=== PATIENT | born 1985 | race Caucasian/White ===

== ENCOUNTER 2024-07-13 09:34 | Day surgery (SDC) | payer BC ==
[2024-07-13] MEDS ORDERED: ceFAZolin 2 GM VIAL ONE (09:46)
[2024-07-13] MEDS: LACTATED RINGERS 1,000 ML IV ONE ×2 (09:52→12:38)
--- NOTE | 2024-07-13 10:20 | ANESTHESIA ---
Pre-Anesthesia VS, & Labs - Diagnosis Gender dysphoria - Procedure Bilateral orchiectomy Vital Signs: Temp Pulse Resp BP Pulse Ox O2 Flow Rate 36.8 C 14 91 124/78 100 07/13/24 10:01 07/13/24 10:01 07/13/24 10:01 07/13/24 10:01 07/13/24 10:01 Height: 5 ft 9 in Weight (kg): 65.7 kg Body Mass Index: 21.4 BMI Classification: Normal - NPO >8 hours Last Fluid Intake: black coffee 07 - Is Patient ?: No Home Medications and Allergies Home Medications: Ambulatory Orders Buspirone HCl 10 mg PO BID 07/07/24 Cholecalciferol [Vitamin D3] 50 mcg PO DAILY 07/07/24 Cyclobenzaprine [Flexeril] 10 mg PO QPM 07/07/24 Escitalopram [Lexapro] 20 mg PO DAILY 07/07/24 Potassium Citrate [Potassium] 99 mg PO DAILY 07/07/24 Progesterone, Micronized [Prometrium] 200 mg PO DAILY 07/07/24 Spironolactone [Aldactone] 200 mg PO BID 07/07/24 Vitamin B Complex 1 each PO DAILY 07/07/24 estradioL [Estradiol] 6 mg PO DAILY 07/07/24 traZODone [Desyrel] 50 mg PO HS 07/07/24 Buspirone HCl 10 mg PO BID 07/07/24 Cholecalciferol [Vitamin D3] 50 mcg PO DAILY 07/07/24 Cyclobenzaprine [Flexeril] 10 mg PO QPM 07/07/24 Escitalopram [Lexapro] 20 mg PO DAILY 07/07/24 Potassium Citrate [Potassium] 99 mg PO DAILY 07/07/24 Progesterone, Micronized [Prometrium] 200 mg PO DAILY 07/07/24 Spironolactone [Aldactone] 200 mg PO BID 07/07/24 Vitamin B Complex 1 each PO DAILY 07/07/24 estradioL [Estradiol] 6 mg PO DAILY 07/07/24 traZODone [Desyrel] 50 mg PO HS 07/07/24 Allergies/Adverse Reactions: Allergies Allergy/AdvReac Type Severity Reaction Status Date / Time No Known Drug Allergies Allergy Verified 07/13/24 10:09 Anes History & Medical History - Anesthetic History Anesthesia Complications: reports: No previous complications - Medical History Cardiovascular: reports: None Pulmonary: reports: None Gastrointestinal: reports: None Urinary: reports: Chronic bladder infection, Kidney stones Neuro: reports: None Musculoskeletal: reports: Osteoarthritis Endocrine/Autoimmune: reports: None Skin: reports: None Smoking Status: Current every day smoker (3/4 to 1 pack per day) Psychosocial: reports: Depression History of Cancer?: No - Surgical History General: reports: Appendectomy Gynecologic: reports: Breast implants Exam General: Alert, Oriented x3, Cooperative, No acute distress Mouth Openin Fingerbreadth Neck Mobility: Normal Mallampati classification: I Thyromental Distance: 4-6 cm Mental/Cognitive Status: Alert/Oriented X3, Normal for patient Plan Anesthesia Type: General Consent for Procedure(s) Verified and Reviewed: Yes Code Status: Attempt Resuscitation ASA classification: 2-Mild systemic disease Is this case an emergency?: No
[2024-07-13] MEDS ORDERED: MORPHINE 2 MG/ML CARPUJECT IVP PRN (10:24)
[2024-07-13] MEDS ORDERED: fentaNYL 100 MCG/2 ML VIAL IVP PRN (10:24)
[2024-07-13] MEDS ORDERED: ATROPINE ABBOJECT 1 MG/10 ML SYRINGE IVP PRN (10:24)
[2024-07-13] MEDS ORDERED: ONDANSETRON 4 MG/2 ML VIAL IVP PRN ×2 (10:24→13:02)
[2024-07-13] MEDS ORDERED: NALOXONE 0.4 MG/ML VIAL IVP PRN (10:24)
[2024-07-13] MEDS ORDERED: HYDROmorphone 0.5 MG/0.5 ML SYRINGE IVP PRN (10:24)
[2024-07-13] MEDS ORDERED: LACTATED RINGERS 1,000 ML IV SCH (11:00)
[2024-07-13] MEDS ORDERED: PROPOFOL 200 MG/20 ML VIAL IVP ONE (11:06)
[2024-07-13] MEDS ORDERED: fentaNYL 100 MCG/2 ML VIAL ONE (11:06)
[2024-07-13] MEDS ORDERED: ONDANSETRON 4 MG/2 ML VIAL ONE (11:06)
[2024-07-13] MEDS ORDERED: DEXAMETHASONE 4 MG/ML VIAL ONE (11:06)
[2024-07-13] MEDS ORDERED: MIDAZOLAM 2 MG/2 ML VIAL ONE (11:07)
[2024-07-13] MEDS ORDERED: lidocaine 1% 20 ML MDV ONE (11:20)
[2024-07-13] MEDS ORDERED: BUPIVACAINE 0.5% PF 10 ML VIAL ONE (11:20)
[2024-07-13] MEDS: BUPIVACAINE 0.5% PF 30 ML VIAL SUBQ ONE ×2 (12:05)
[2024-07-13] MEDS: LIDOCAINE-MPF 1% 30 ML VIAL SUBQ ONE ×2 (12:05)
--- NOTE | 2024-07-13 13:08 | Discharge Plan ---
Discharge Plan Problem Reviewed?: Yes Disposition: Home, Self Care Condition: Good Prescriptions: Docusate Sodium 100Mg Capsule [Colace 100Mg Capsule] 100 mg PO DAILY #14 cap oxyCODONE [Roxicodone] 5 mg PO Q4H PRN #10 tablet PRN Reason: Pain Diet: Regular Activity Restrictions: Additional Comments (as instructed) Shower Restrictions: No (no bathing for one week) Driving Restrictions: No Additional Instructions or Follow Up instructions: You will be contacted for follow-up with Dr. Cohen in roughly 6 weeks time No Smoking: If you smoke, Please STOP! Call for help. Follow-up with: ARIN EASTMAN MD [Primary Care Provider] - Oleg Cohen MD [Provider Admit Priv/Credential] -
--- NOTE | 2024-07-13 13:12 | OPERATIVE REPORT ---
Operative Report - General Procedure Date: 07/13/24 Planned Procedure: Bilateral simple orchiectomy Pre-Op Diagnosis: Gender dysphoria Procedure Performed: Bilateral simple orchiectomy Post Op Diagnosis: Gender dysphoria - Procedure Note Primary Surgeon: Noel Anesthesia Provider: ROCCO Schwartz Anesthesia Technique: General LMA Pathology: Left and right spermatic cord and testicle Estimated Blood Loss (mL): 2 Findings: Bilateral simple orchiectomy Complications: none - Other Other Information/Narrative: After informed consent was obtained the patient was brought to the OR and laid in the supine position. The patient was anesthetized per anesthesia protocols and prepped draped in usual sterile fashion. A formal timeout was performed reconfirmed the patient, procedure and laterality. Local with 1% lidocaine and quarter percent Marcaine was instilled in the median raphae of her scrotum. Approximately 3 cm incision was made through the raphae. Spot cautery was used for hemostasis. We dissected to the left tunica vaginalis which was then incised and the testicle and traumatic cord were delivered. A cord block was delivered. This was suture-ligated at a high level with a 2-0 silk suture. We also used an 0 silk tie slightly proximal to this. The spermatic cord itself was then divided using electrocautery and the spermatic cord and testicle were sent off as a left testicle and spermatic cord. We dissected to the right tunica vaginalis which was then incised and the testicle and traumatic cord were delivered. A cord block was delivered. This was suture-ligated at a high level with a 2-0 silk suture. We also used an 0 silk tie slightly proximal to this. The spermatic cord itself was then divided using electrocautery and the spermatic cord and testicle were sent off as a right testicle and spermatic cord. The wound was irrigated. Spot cautery was used for any bleeding. There was no bleeding seen. The dartos and median raphae were then closed using a running 3-0 Vicryl suture. The skin was then closed using a combination of horizontal mattress sutures and running 3-0 chromic suture. The incision was washed and dried and a small gauze and Tegaderm was placed. Fluffs and a scrotal support were then delivered. This concluded the procedure and the patient tolerated procedure well. She was brought to the PACU without further incident She will follow-up in 6 weeks time with me
[2024-07-13] MEDS ORDERED: HYDROcod/ACETAM 5/325 MG TABLET ONE (13:23)
[2024-07-13] MEDS: HYDROcod/ACETAM 5/325 MG TABLET PO PRN (13:25)
[2024-07-13 13:59] VITALS: BP 110/75; O2SAT 98
--- NOTE | 2024-07-13 16:13 | ANESTHESIA POST OP EVALUATION ---
Anesthesia Post Eval - Post Anesthesia Eval Vitals: Last Vital Signs Temp 36.6 C 07/13/24 13:40 Pulse 81 07/13/24 13:40 Resp 14 07/13/24 13:40 BP 110/75 07/13/24 13:40 Pulse Ox 98 07/13/24 13:40 O2 Flow Rate CV Function Including HR & BP: Stable Pain Control: Satisfactory Nausea & Vomiting: Negative Mental Status: Baseline Respiratory Status: Airway Patent Hydration Status: Satisfactory Anesthesia Complications: None
== END 2024-07-13 09:35 | disposition home or self-care (01) ==
LOC: SDS 09:34
PROVIDERS: ATTEND Urology
PROC: 0VTC0ZZ Resection of Bilateral Testes, Open Approach (ICD-10-PCS; principal; 2024-07-13 11:15)
DX: F64.9 Gender identity disorder, unspecified (principal); F17.200 Nicotine dependence, unspecified, uncomplicated; F32.A Depression, unspecified
CPT/HCPCS: 54520; A9270; J7120